=== PATIENT | female | born 1975 | race African-American/Black ===

== ENCOUNTER 2017-05-08 21:15 | Emergency (ER) | payer OTHER ==
[2017-05-08 21:21] VITALS: BP 122/75; PULSE 105; TEMP 98.3; BMI 31.2
--- NOTE | 2017-05-08 21:21 | PDOC ---
Rapid Medical Evaluation Chief Complaint: Pain Time Seen by Provider: 05/08/17 21:17 Medical Evaluation: Allergies Allergy/AdvReac Type Severity Reaction Status Date / Time No Known Allergies Allergy Verified 10/02/15 18:38 05/08/17 21:19 I have performed a brief in-person evaluation of this patient. The patient presents with a chief complaint of: fell at 3am today and landed on her right knee/ +pain able to ambulate Pertinent physical exam findings: right knee ant pain on palp;l neg valrus/ valgus/ant/posterior drawer I have ordered the following:xray right kinee/ upreg The patient will proceed to the ED for further evaluation.
[2017-05-08] MEDS ORDERED: IBUPROFEN 600 MG TABLET (FP) PO ONE ×2 (22:13→22:25)
--- NOTE | 2017-05-08 22:13 | PDOC ---
History of Present Illness - General Chief Complaint: Pain Stated Complaint: RIGHT KNEE PAIN Time Seen by Provider: 05/08/17 21:17 History Source: Patient Exam Limitations: No Limitations - History of Present Illness Initial Comments: 05/08/17 22:12 41 yr female tripped this AM and fell on her right knee. no loc no head trauma no meds taken PRACTICE PHYSICIAN Occurred: reports: this morning Severity: Yes: moderate Past History - Past Medical History Allergies/Adverse Reactions: Allergies Allergy/AdvReac Type Severity Reaction Status Date / Time No Known Allergies Allergy Verified 10/02/15 18:38 Home Medications: Ambulatory Orders Amlodipine Besylate [Norvasc -] 5 mg PO DAILY 05/08/17 Asthma: Yes Cancer: No Cardiac Disorders: No COPD: No Diabetes: No HTN: Yes Seizures: No Thyroid Disease: No - Suicide/Smoking/Psychosocial Hx Smoking Status: No Smoking History: Never smoked Have you smoked in the past 12 months: No Number of Cigarettes Smoked Daily: 3 Information on smoking cessation initiated: No Hx Alcohol Use: No Drug/Substance Use Hx: No Substance Use Type: None Hx Substance Use Treatment: No *Physical Exam - Vital Signs Last Vital Signs Temp Pulse Resp BP Pulse Ox 98.3 F 105 H 18 122/75 100 05/08/17 21:18 05/08/17 21:18 05/08/17 21:18 05/08/17 21:18 05/08/17 21:18 - Physical Exam General Appearance: Yes: Nourished, Appropriately Dressed HEENT: positive: EOMI, LILIBETH Respiratory/Chest: positive: Lungs Clear, Normal Breath Sounds Cardiovascular: positive: Regular Rhythm, Regular Rate Musculoskeletal: positive: Normal Inspection Extremity: positive: Normal Capillary Refill, Normal Inspection, Tender ( patella right ), Inflammation (right knee limited rom due to pain ) Integumentary: positive: Normal Color, Dry, Warm Neurologic: positive: address change clerk II-XII NML intact, Fully Oriented, Alert, Normal Mood/ Affect, Normal Response, Motor Strength 5/5 Procedures - Splinting Willian Bandage: yes, 4" (right knee ) ED Treatment Course - ADDITIONAL ORDERS Additional order review: Laboratory Results 05/08/17 21:25 Urine HCG, Qual Negative Medical Decision Making - Medical Decision Making 05/08/17 22:12 cc: trip and fall injured right knee at 3am today no pain meds taken PRACTICE PHYSICIAN xray done in triage neg fracture pos effusion will give motrin, willian wrap and strict follow up with ortho pt understands the dc plan all questions asked and answered 05/08/17 22:29 *DC/Admit/Observation/Transfer Diagnosis at time of Disposition: Knee effusion, right Contusion, knee Qualifiers: Encounter type: initial encounter Laterality: right Qualified Code(s): S80.01XA - Contusion of right knee, initial encounter - Discharge Dispostion Disposition: HOME Condition at time of disposition: Good - Referrals Referrals: Gabriella Murguia MD [Primary Care Provider] - Dariel Samuels MD [Staff Physician] - - Patient Instructions Additional Instructions: elevate and apply ice to the right knee every 2hrs for 20 minutes while awake for the next 2 days use the willian wrap for comfort remove to sleep follow with the orthopedist next week take motrin 600mg every 6-8hrs for pain as needed no strenuous activity - Post Discharge Activity
[2017-05-08] MEDS ORDERED: IBUPROFEN 100 MG/5 ML UNIT DOSE CUPS ONE (22:28)
[2017-05-08] MEDS ORDERED: IBUPROFEN 100 MG/5 ML UNIT DOSE CUPS PO ONE (22:29)
== END 2017-05-08 22:36 | disposition home or self-care (01) ==
LOC: JERFT 21:15 → JER 21:15 → JERFT 22:36
DX: S80.01XA Contusion of right knee, initial encounter (principal); M25.461 Effusion, right knee; W01.0XXA Fall on same level from slipping, tripping and stumbling without subsequent striking against object, initial encounter; Y93.89 Activity, other specified; Y92.89 Other specified places as the place of occurrence of the external cause; Y99.8 Other external cause status; I10 Essential (primary) hypertension; Z87.09 Personal history of other diseases of the respiratory system
CPT/HCPCS: 73560-TC-RT; 84703; 99281-25